=== PATIENT | female | born 1955 | race Caucasian/White ===

== ENCOUNTER 2023-10-11 09:30 | Oncology outpatient (recurring) (ONCR) | payer MEDICARE, SELFPAY ==
[2023-10-04] MEDS: sodium chloride 0.9% 250 ML 75 ML IV (10:13)
[2023-10-04] MEDS: ferumoxytol (NON-ESRD) 510 MG in sodium chloride 0.9% (100 ml) 100 ML 351 MG IV (10:14)
[2023-10-04 10:45] VITALS: BP 110/60; PULSE 67; RESP 16; TEMP 36.6; O2SAT 90
== END 2023-11-03 23:59 | disposition home or self-care (01) ==
PROVIDERS: PCP Nurse Practitioner Family; Visit Provider Nurse Practitioner Family
DX: Z53.9 Procedure and treatment not carried out, unspecified reason (principal)
CPT/HCPCS: 96365; J7050; Q0138

== ENCOUNTER 2024-01-07 09:48 | Oncology outpatient (recurring) (ONCR) | payer MEDICARE, SELFPAY ==
[2024-01-07] VITALS (9 sets, daily range): BP systolic 122–156; BP diastolic 70–82; PULSE 61–75; RESP 16; TEMP 36.1–36.8; O2SAT 90–98
[2024-01-07] MEDS: sodium chloride 0.9% 250 ML 75 ML IV (10:58)
[2024-01-07] MEDS: diphenhydrAMINE 25 mg Capsule PO (11:01)
[2024-01-07] MEDS: acetaminophen 325 mg Tablet 975 MG PO (11:01)
[2024-01-07] MEDS: methylPREDNISolone sod succ 125 mg/2 mL INJ IV (11:02)
[2024-01-07] MEDS: rituximab-abbs 1,000 MG in sodium chloride 0.9% 500 ML 25 MG IV (11:45)
== END 2024-02-02 23:59 | disposition home or self-care (01) ==
PROVIDERS: PCP Nurse Practitioner Family; Visit Provider Nurse Practitioner Family
DX: I77.82 Antineutrophilic cytoplasmic antibody [ANCA] vasculitis (principal); N05.2 Unspecified nephritic syndrome with diffuse membranous glomerulonephritis
CPT/HCPCS: 96375; 96413; 96415; J2930; J7040; J7050; Q5115

== ENCOUNTER 2024-06-30 06:48 | Outpatient (CLI) | payer MEDICARE, SELFPAY ==
[2024-06-30 07:25] LABS: Anion Gap 15.6 (5-19); Blood Urea Nitrogen 47 mg/dL (8-23); Calcium 9.3 mg/dL (8.5-10.5); Carbon Dioxide 28 mmol/L (22-29); Chloride 98 mmol/L (98-107); Glomerular Filtration Rate 23.4 mL/min (90-130); Glucose 157 mg/dL (65-115); Phosphorus 4.1 mg/dL (2.5-4.5); Potassium 3.6 mmol/L (3.5-5.1); Sodium 138 mmol/L (136-145)
== END 2024-06-30 06:49 | disposition home or self-care (01) ==
PROVIDERS: PCP Nurse Practitioner Family; Visit Provider Registered Nurse
DX: N18.4 Chronic kidney disease, stage 4 (severe) (principal)
CPT/HCPCS: 36415; 80069

== ENCOUNTER 2024-07-24 08:10 | Oncology outpatient (recurring) (ONCR) | payer MEDICARE, SELFPAY ==
[2024-07-24] VITALS (8 sets, daily range): BP systolic 133–187; BP diastolic 72–83; PULSE 55–78; RESP 16; TEMP 36.1–37; O2SAT 90–96
[2024-07-24] MEDS: diphenhydrAMINE 25 mg Capsule PO (08:53)
[2024-07-24] MEDS: sodium chloride 0.9% 250 ML 75 ML IV (08:53)
[2024-07-24] MEDS: acetaminophen 325 mg Tablet 975 MG PO (08:54)
[2024-07-24] MEDS: methylPREDNISolone sod succ 125 mg/2 mL INJ IV (08:57)
[2024-07-24] MEDS: rituximab-abbs 1,000 MG in sodium chloride 0.9% 500 ML 70 MG IV (09:26)
[2024-07-24 13:00] LABS: Basophils % 0.2 %; Eosinophils % 0.2 %; Hematocrit 36.6 % (36-47); Lymphocytes # 0.6 10^3/uL (0.8-4.8); Lymphocytes % 12.6 %; Mean Corpuscular HGB Conc 33.1 g/dL (30-55); Mean Corpuscular Hemoglobin 32.6 pg (27-33); Mean Corpuscular Volume 98.7 fl (85-98); Mean Platelet Volume 9.9 fL (7.4-10.4); Monocytes # 0.1 10^3/uL (0.2-0.9); Neutrophils # 4.28 10^3/uL (1.8-7.7); Neutrophils % 84.6 %; Nucleated Red Blood Cells % 0 %; Platelet Count 173 10^3/cmm (157-399); Red Blood Count 3.71 10^6/uL (3.85-5.65); Red Cell Distribution Width 13.8 % (12.1-15.1); White Blood Count 5.06 10^3/uL (3.29-11.43)
[2024-07-24 13:21] LABS: Alanine Aminotransferase 13 U/L (0-33); Alkaline Phosphatase 61 U/L (35-105); Aspartate Amino Transferase 20 U/L (0-32); Blood Urea Nitrogen 30 mg/dL (8-23); Calcium 9.2 mg/dL (8.5-10.5); Carbon Dioxide 27 mmol/L (22-29); Chloride 105 mmol/L (98-107); Globulin 2.7 g/dL (1.3-4.6); Glomerular Filtration Rate 40.6 mL/min (90-130); Glucose 110 mg/dL (65-115); Osmolality Calculated 301 mOsm/kg (285-295); Sodium 142 mmol/L (136-145); Total Bilirubin 0.5 mg/dL (0.15-1.2); Total Protein 6.7 g/dL (6.6-8.7)
[2024-07-24 14:00] LABS: Bilirubin Urine Negative (Negative); Blood Urine Negative (Negative); Glucose Urine UA Negative (Normal); Ketones Urine Negative (Negative); Leukocyte Esterase Urine Negative (Negative); Nitrate Urine Negative (Negative); Protein Urine 1+ (Negative); Specific Gravity, Urine 1.008 (1.005-1.030); Urine Appearance Clear (CLEAR); Urine Color Yellow (Yellow); Urobilinogen Urine 0.2 mg/dL (Negative); pH Urine 5.5 (5-7)
[2024-07-24 14:02] LABS: Add Urine Microscopic? YES; Bacteria Urine None Seen /hpf; Squamous Epithelial Cell Urine 0-5 /hpf (0-5); WBC Urine 0-5 /hpf (0-5)
[2024-07-28 11:49] LABS: ANCA Screen NEGATIVE (NEGATIVE)
== END 2024-07-24 23:59 | disposition home or self-care (01) ==
PROVIDERS: Student in an Organized Health Care Education/Training Program; PCP Nurse Practitioner Family; Visit Provider Otolaryngology
DX: I77.82 Antineutrophilic cytoplasmic antibody [ANCA] vasculitis (principal); N05.2 Unspecified nephritic syndrome with diffuse membranous glomerulonephritis; Z79.899 Other long term (current) drug therapy
CPT/HCPCS: 36415; 80053; 81001; 85025; 86036; 86140; 96375; 96413; 96415; J2919; J7040; J7050; Q5115

== ENCOUNTER 2025-02-03 08:09 | Oncology outpatient (recurring) (ONCR) | payer MEDICARE, SELFPAY ==
[2025-02-03] MEDS: diphenhydrAMINE 50 mg/mL SDV 1mL 25 MG IVP (08:45)
[2025-02-03] MEDS: acetaminophen 325 mg Tablet 975 MG PO (08:47)
[2025-02-03] MEDS: rituximab-pvvr 1,000 MG in sodium chloride 0.9% 500 ML 50 MG IV (08:59)
[2025-02-03 09:30] VITALS: BP 176/65; PULSE 58; RESP 16; TEMP 36.9; O2SAT 91
[2025-02-03 10:34] VITALS: BP 177/70; PULSE 68; RESP 16; TEMP 36.3; O2SAT 91
[2025-02-03 13:20] VITALS: BP 184/77; PULSE 68; RESP 16; TEMP 36.3; O2SAT 92
== END 2025-03-03 23:59 | disposition home or self-care (01) ==
LOC: ONCMED 08:11
PROVIDERS: PCP Nurse Practitioner Family; Visit Provider Otolaryngology
DX: I77.82 Antineutrophilic cytoplasmic antibody [ANCA] vasculitis (principal); Z79.899 Other long term (current) drug therapy
CPT/HCPCS: 96413; 96415; J1200; J7040; J9999; Q5119

== ENCOUNTER 2025-08-26 08:22 | Oncology outpatient (recurring) (ONCR) | payer MEDICARE, SELFPAY ==
[2025-08-26] VITALS (7 sets, daily range): BP systolic 154–209; BP diastolic 66–92; PULSE 50–65; RESP 16; TEMP 36.4–36.9; O2SAT 90–97
--- NOTE | 2025-08-26 09:17 | PC.NURSE ---
Patient stated she had a cough and shortness of breath when this nurse was asking patient the RHEO questionnaire for her Rituximab infusion. Patient also stated she has had numerous scans over the last few months for her lungs and has a CT scan tomorrow. This nurse called the prescribing providers office, [facility], and informed the provider of patient's symptoms and scans. Patient's prescribing provider, Peyton Núñez DO stated it was okay to give patient the infusion as long as patient is not running a fever and has no other symptoms.
[2025-08-26] MEDS: methylPREDNISolone sod succ 125 mg/2 mL INJ IVP (09:33)
--- NOTE | 2025-08-26 12:35 | PC.NURSE ---
Patient has been hypertensive with a systolic BP in the 200's throughout Rituximab infusion. Patient is not symptomatic. Patient stated she took 12.5 mg of Carvedilol this morning and took another 12.5 mg of Carvedilol during her infusion in attempt to lower her blood pressure. Patient states she usually takes 12.5 of Carvedilol in the morning and at night. This nurse called patient's prescribing providers office, [facility], to inform them of patient's hypertension. This nurse spoke with care steam plant operator, Bev who relayed the information to Leisa Boggs NP. Leisa Boggs NP stated to continue the Rituximab infusion, gave a verbal order for Clonidine 0.1mg PO once, and stated to have patient report to the ED if she becomes symptomatic. This nurse relayed the providers order to patient. Patient confirmed understanding. Clonidine 0.1mg PO administered to patient.
== END 2025-08-26 23:59 | disposition home or self-care (01) ==
PROVIDERS: PCP Nurse Practitioner Family; Visit Provider Otolaryngology
DX: I77.82 Antineutrophilic cytoplasmic antibody [ANCA] vasculitis (principal); Z79.899 Other long term (current) drug therapy; Z53.9 Procedure and treatment not carried out, unspecified reason
CPT/HCPCS: 96375; 96413; 96415; J2919; J7040; J9312; J9999